=== PATIENT | male | born 1950 | race Caucasian/White ===

== ENCOUNTER 2022-05-26 12:36 | Emergency (ER) | payer MEDICARE ==
[~2022-05-26] VITALS: Ht 182.9 cm; Wt 65.9 kg
[2022-05-26 12:45] VITALS: BP 136/85
== END 2022-05-26 15:17 | disposition left against medical advice (07) ==
LOC: ER 12:36
DX: R10.9 Unspecified abdominal pain (principal); Z53.21 Procedure and treatment not carried out due to patient leaving prior to being seen by health care provider

== ENCOUNTER 2022-06-05 06:05 | Day surgery (SDC) | payer MEDICARE, OTHER ==
[2022-06-03 11:04] LABS: BASOPHILS # (AUTO) 0.1 X10'3 (0-0.2); BASOPHILS % (AUTO) 0.9 % (0-1); EOSINOPHILS # (AUTO) 0.2 X10'3 (0-0.9); EOSINOPHILS % (AUTO) 2.9 % (0-6); LYMPHOCYTES # (AUTO) 1.7 X10'3 (1.1-4.8); LYMPHOCYTES % (AUTO) 24.9 % (21-51); MEAN CORPUSCULAR HEMOGLOBIN 29.3 PG (27.0-31.0); MEAN CORPUSCULAR HGB CONC 33.5 g/dL (33.0-36.5); MEAN CORPUSCULAR VOLUME 87.5 FL (78-98); MEAN PLATELET VOLUME 9.9 FL (7.4-10.4); MONOCYTES # (AUTO) 0.5 X10'3 (0-0.9); MONOCYTES % (AUTO) 7.9 % (2-12); NEUTROPHILS # (AUTO) 4.2 X10'3 (1.8-7.7); NEUTROPHILS % (AUTO) 63.4 % (42-75); PRE OP HEMATOCRIT 41.7 % (42.0-52.0); PRE OP PLATELET COUNT 242 X10'3 (140-440); RED BLOOD COUNT 4.77 X10'6 (4.70-6.10); RED CELL DISTRIBUTION WIDTH 16.8 % (11.5-14.5)
[2022-06-03 11:19] LABS: ALBUMIN 3.7 G/DL (3.4-5.0); ALKALINE PHOSPHATASE 97 IU/L (46-116); BLOOD UREA NITROGEN 14 MG/DL (7-18); BUN/CREATININE RATIO 17.7 (5.4-32.0); CALCIUM 8.7 MG/DL (8.5-10.1); CHLORIDE 105 MMOL/L (99-107); CREATININE 0.79 MG/DL (0.60-1.10); PRE OP ALT 24 U/L (30-65); PRE OP ANION GAP 5 (8-16); PRE OP AST 29 U/L (10-37); PRE OP BILIRUB, TOTAL 0.3 MG/DL (0.0-1.0); PRE OP GLUCOSE 74 MG/DL (70-104); PRE OP POTASSIUM 4.5 MMOL/L (3.4-5.1); PRE OP SODIUM 141 MMOL/L (135-145); TOTAL CARBON DIOXIDE 30.7 MMOL/L (24-32); TOTAL PROTEIN 7.5 G/DL (6.4-8.2); eGFR > 90 ML/MIN
[2022-06-05] VITALS (14 sets, daily range): BP systolic 93–149; BP diastolic 69–91
[~2022-06-05] VITALS: Ht 182.9 cm; Wt 62.0 kg
[~2022-06-05 06:05] MED LIST: ASPI-2 PO; IBUP-1986 PO; MULT-1172 PO; ceFAZolin inj. 2,000 MG in dextrose 5%-water 100 ML IV ONE; famotidine 20mg tablet PO ONE; ringers solution, lacted 1,000 ML IV SCH
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
[2022-06-05] MEDS ORDERED: BUPIVAcaine/PF 2.5 mg/ml (0.25%) 30ml vial ONE (06:43)
[2022-06-05] MEDS ORDERED: acetaminophen 1,000mg/100ml IV 100 ML IV PRN (07:30)
[2022-06-05] MEDS ORDERED: labetalol 20mg/4ml (5mg/ml) syringe IV PRN (07:30)
[2022-06-05] MEDS ORDERED: ondansetron/PF 4mg/2ml inj IV PRN (07:30)
[2022-06-05] MEDS ORDERED: hydrALAZINE 20mg/ml inj. IV PRN (07:30)
[2022-06-05] MEDS ORDERED: morphine 2 MG/ML inj. syringe IV PRN (07:30)
[2022-06-05] MEDS ORDERED: meperidine/PF 25mg/ml syringe IV PRN ×3 (07:30)
[2022-06-05] MEDS ORDERED: ringers solution, lacted 1,000 ML IV SCH (07:30)
[2022-06-05] MEDS ORDERED: proCHLORperazine 10 MG/2 ml inj IV PRN (07:30)
[2022-06-05] MEDS ORDERED: morphine 4 MG/ML inj SYRINge IV PRN (07:30)
[2022-06-05] MEDS ORDERED: sevoflurane 250ml liquid IH ONE (08:16)
[2022-06-05] MEDS ORDERED: fentaNYL /PF 50mcg/ml 5ml ampule ONE (08:19)
[2022-06-05] MEDS ORDERED: midazolam 1 mg/ML 2ml injection ONE (08:19)
[2022-06-05] MEDS ORDERED: ondansetron/PF 4mg/2ml inj ONE (08:37)
[2022-06-05] MEDS ORDERED: dexamethasone sod phosphate 4mg/ml inj. ONE (08:37)
[2022-06-05] MEDS ORDERED: propofol inj 20 ML IV ONE (08:37)
[2022-06-05] MEDS ORDERED: rocuronium 10mg/ml inj IV ONE (08:37)
[2022-06-05] MEDS ORDERED: LIDOcaine 2% (20mg/ml) 5ml vial ONE (08:38)
[2022-06-05] MEDS ORDERED: morphine 4 MG/ML inj SYRINge ONE (09:57)
[2022-06-05] MEDS ORDERED: neostigmine methylsulfate 1 MG/ML 10ml vial ONE (09:57)
[2022-06-05] MEDS ORDERED: glycopyrrolate 0.2mg/ml inj ONE (09:58)
--- NOTE | 2022-06-05 10:05 | NUR ---
RECEIVED PT FROM OPERATING ROOM , REPORT GIVEN BY ANESTHESIOLOGIST AND OR NURSE. PT IS AROUSABLE TO VERBAL STIMULATION, VITAL SIGNS STABLE, INCISION SITES ARE DRY AND OPEN TO AIR WITH DERMABOND INPLACE
--- NOTE | 2022-06-05 11:20 | NUR ---
PT UP AMBULATING, HE WAS ABLE TO URINE A SMALL AMOUNT OF URINE. SON CALLED, MESSAGE LEFT. DISCHARGE INSTRUCTIONS GIVEN, PT VERBALIZED UNDERSTANDING. MILD ABD PAIN PRESENT, PT MEDICATED
--- NOTE | 2022-06-05 12:15 | NUR ---
PT WAS ABLE TO REACH HIS SON, WHO CAME TO PICK HIM UP. PT TAKEN IN WHEELCHAIR TO FRONT LOBBY WHERE HE WAS DRIVEN HOME BY HIS SON. 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
== END 2022-06-05 12:15 | disposition home or self-care (01) ==
LOC: PAS 06:05
PROVIDERS: ATTEND Surgery
DX: K40.90 Unilateral inguinal hernia, without obstruction or gangrene, not specified as recurrent (principal); Z79.899 Other long term (current) drug therapy; Z98.890 Other specified postprocedural states; Z79.82 Long term (current) use of aspirin; Z80.8 Family history of malignant neoplasm of other organs or systems; Z82.49 Family history of ischemic heart disease and other diseases of the circulatory system
CPT/HCPCS: 49650; 80053; 82948; 85025; 93005; C1758; C1781; J0690; J1100; J2250; J2270; J2405; J2704; J2710; J3010; J3490; J7030; J7060; J7120; Z7506; Z7508; Z7512; A4215; A4618

== ENCOUNTER 2023-12-29 17:22 | Emergency (ER) | payer OTHER, MEDICARE ==
[~2023-12-29] VITALS: Ht 182.9 cm; Wt 66.4 kg
[~2023-12-29 17:22] MED LIST changes: -ceFAZolin inj. 2,000 MG in dextrose 5%-water 100 ML IV ONE; -famotidine 20mg tablet PO ONE; -ringers solution, lacted 1,000 ML IV SCH
[2023-12-29 18:53] LABS: APTT 28 SECONDS (22-32); D-DIMER 25.95 MG/L FEU (0-0.50); INR 1.1 INR; PROTHROMBIN TIME 11.7 SECONDS (9.0-12.0)
[2023-12-29 18:54] LABS: ALBUMIN 3.2 G/DL (3.4-5.0); ANION GAP 9 (8-16); BLOOD UREA NITROGEN 14 MG/DL (7-18); BUN/CREATININE RATIO 14.9 (10.0-20.0); CHLORIDE 100 MMOL/L (99-107); CREATININE 0.94 MG/DL (0.60-1.10); GLUCOSE 66 MG/DL (70-104); POTASSIUM 3.6 MMOL/L (3.5-5.1); PRO BRAIN NATRIURETIC PEPTIDE 2602 PG/ML (0-125); SODIUM 133 MMOL/L (135-145); TOTAL CARBON DIOXIDE 24.5 MMOL/L (24-32); eCRCL 65 ML/MIN; eGFR 78 ML/MIN
[2023-12-29 20:02] LABS: BASOPHILS # (AUTO) 0.1 X10'3 (0-0.2); EOSINOPHILS # (AUTO) 0.2 X10'3 (0-0.9); LYMPHOCYTES # (AUTO) 1.9 X10'3 (1.1-4.8); MONOCYTES # (AUTO) 0.7 X10'3 (0-0.9); RED BLOOD COUNT 4.61 X10'6 (4.70-6.10); WHITE BLOOD COUNT 6.8 X10'3 (4.5-11.0)
[2023-12-29 20:03] VITALS: TEMP 98.6
[2023-12-29 20:04] LABS: EOSINOPHILS % (AUTO) 2.4 % (0-6); HEMATOCRIT 43.7 % (42.0-52.0); HEMOGLOBIN 14.4 g/dl (14.0-17.9); LYMPHOCYTES % (AUTO) 28.1 % (21-51); MEAN CORPUSCULAR HEMOGLOBIN 31.2 PG (27.0-31.0); MEAN CORPUSCULAR VOLUME 94.7 FL (78-98); MEAN PLATELET VOLUME 11.6 FL (7.4-10.4); MONOCYTES % (AUTO) 10.2 % (2-12); NEUTROPHILS # (AUTO) 3.9 X10'3 (1.8-7.7); NEUTROPHILS % (AUTO) 58.3 % (42-75); RED CELL DISTRIBUTION WIDTH 16.9 % (11.5-14.5)
[2023-12-29 20:16] LABS: PLATELET COUNT 212 X10'3 (140-440)
[2023-12-29 20:54] LABS: ANISOCYTOSIS 1+; GIANT PLATELET FEW; LARGE PLATELETS FEW; PLATELET ESTIMATE NORMAL
[2023-12-29] MEDS ORDERED: iohexol 350MG/ML 100ml bottle IV ONE (21:31)
[2023-12-29] MEDS: furosemide 10 MG/1 ML 10ml inj IV ONE (21:59)
[2023-12-29 23:46] VITALS: BP 125/82; PULSE 66; RESP 16; O2SAT 100
== END 2023-12-29 23:48 | disposition home or self-care (01) ==
LOC: ER 17:22
DX: R79.89 Other specified abnormal findings of blood chemistry (principal)
CPT/HCPCS: 36415; 71045; 71275; 80048; 83880; 84484; 85008; 85025; 85379; 85610; 85730; 93005; 99285; J3490; Q9967